=== PATIENT | male | born 1950 | race Caucasian/White ===

== ENCOUNTER 2019-06-03 07:34 | Emergency (ER) | payer MEDICARE, OTHER ==
[~2019-06-03] VITALS: Ht 172.7 cm; Wt 100.0 kg
[~2019-06-03 07:34] MED LIST: ACYC-202 PO; ASPI-611 PO; ATEN-169 PO; ATOR80TA PO; BUDE10.22 INH; CHOL400T57 PO; CYAN500T63 PO; LISI2.5T2 PO; METF500T PO
[2019-06-03] MEDS ORDERED: LIDOcaine 1% w/epiNEPHrine 1:200,000 30ml vial IM ONE (08:50)
[2019-06-03] MEDS ORDERED: AMOX-422 PO (10:43)
[2019-06-03] MEDS ORDERED: TETanus/Pertussis (Acell)/Diphther VAC/PF (Tdap-Adult) 0.5ml syringe IM ONE (10:45)
[2019-06-03 11:12] VITALS: BP 150/90
== END 2019-06-03 11:14 | disposition home or self-care (01) ==
LOC: ER 07:35
DX: S81.842A Puncture wound with foreign body, left lower leg, initial encounter (principal); Z79.2 Long term (current) use of antibiotics; Z79.82 Long term (current) use of aspirin; Z79.84 Long term (current) use of oral hypoglycemic drugs; Z79.899 Other long term (current) drug therapy; W45.8XXA Other foreign body or object entering through skin, initial encounter; Y93.89 Activity, other specified; Y92.89 Other specified places as the place of occurrence of the external cause; Y99.8 Other external cause status
CPT/HCPCS: 10120; 90471; 99284

== ENCOUNTER 2021-10-05 07:16 | Inpatient (IN) | payer OTHER, MEDICARE ==
[~2021-10-05] VITALS: Ht 172.7 cm; Wt 104.5 kg
[~2021-10-05 07:16] MED LIST changes: +ACYC-129 PO; -ACYC-202 PO; -CYAN500T63 PO; +CYAN500T71 PO; +LISI2.5T14 PO; -LISI2.5T2 PO
[2021-10-05] MEDS ORDERED: benzonatate 100mg capsule PO ONE (07:55)
[2021-10-05] MEDS ORDERED: acetaminophen 325mg tablet PO ONE (07:55)
[2021-10-05 08:28] LABS: HEMOGLOBIN 12.8 g/dl (14.0-17.9); LYMPHOCYTES # (AUTO) 0.6 X10'3 (1.1-4.8); MEAN PLATELET VOLUME 8.4 FL (7.4-10.4)
[2021-10-05 08:31] LABS: BASOPHILS % (AUTO) 0.5 % (0-1); EOSINOPHILS % (AUTO) 0.5 % (0-6); HEMATOCRIT 37.8 % (42.0-52.0); LYMPHOCYTES % (AUTO) 8.9 % (21-51); MEAN CORPUSCULAR HEMOGLOBIN 31.6 PG (27.0-31.0); MEAN CORPUSCULAR VOLUME 93.1 FL (78-98); MONOCYTES # (AUTO) 0.6 X10'3 (0-0.9); MONOCYTES % (AUTO) 10.2 % (2-12); NEUTROPHILS # (AUTO) 5.1 X10'3 (1.8-7.7); NEUTROPHILS % (AUTO) 79.9 % (42-75); PLATELET COUNT 408 X10'3 (140-440); RED BLOOD COUNT 4.06 X10'6 (4.70-6.10); RED CELL DISTRIBUTION WIDTH 14.3 % (11.5-14.5); WHITE BLOOD COUNT 6.3 X10'3 (4.5-11.0)
[2021-10-05 08:54] LABS: ALANINE AMINOTRANSFERASE 57 U/L (12-78); ALBUMIN 2.2 G/DL (3.4-5.0); ALBUMIN/GLOBULIN RATIO 0.4 (1.1-1.5); ALKALINE PHOSPHATASE 102 IU/L (46-116); ANION GAP 9 (8-16); ASPARTATE AMINO TRANSFERASE 48 U/L (10-37); BILIRUBIN,TOTAL 0.4 MG/DL (0.1-1.0); BLOOD UREA NITROGEN 20 MG/DL (7-18); BUN/CREATININE RATIO 18.2 (5.4-32.0); CALCIUM 9.1 MG/DL (8.5-10.1); CHLORIDE 103 MMOL/L (99-107); GLUCOSE 361 MG/DL (70-104); POTASSIUM 4.5 MMOL/L (3.5-5.1); SODIUM 140 MMOL/L (135-145); TOTAL CARBON DIOXIDE 28.1 MMOL/L (24-32); TOTAL PROTEIN 7.1 G/DL (6.4-8.2); eGFR 66 ML/MIN
[2021-10-05] MEDS ORDERED: heparin 10,000 units/1 ML INJ IV ONE ×3 (09:10→10:27)
[2021-10-05] MEDS ORDERED: aspirin 325mg tablet PO ONE (09:10)
[2021-10-05 09:24] LABS: BURR CELLS 1+; LARGE PLATELETS FEW; PLATELET ESTIMATE NORMAL
[2021-10-05] MEDS ORDERED: iohexol 350MG/ML 100ml bottle IV ONE (09:54)
[2021-10-05] MEDS ORDERED: dexamethasone 4mg/ml inj IV ONE (10:05)
[2021-10-05] MEDS ORDERED: magnesium 2GM in 50ml NS 50 ML IV PRN (10:10)
[2021-10-05] MEDS ORDERED: bisacodyl 10mg suppository rectal RC PRN (10:10)
[2021-10-05] MEDS ORDERED: PERFLUTREN PROTEIN-A MICROSPHR (Optison) 0.22 MG/ML 3ML VIAL IV ONE (10:10)
[2021-10-05] MEDS ORDERED: magnesium Cl slow-release 64mg tablet PO PRN (10:10)
[2021-10-05] MEDS ORDERED: acetaminophen 325mg tablet PO PRN ×2 (10:10)
[2021-10-05] MEDS ORDERED: HYDROcodone/acetaminophen 5mg/325mg tablet PO PRN (10:10)
[2021-10-05] MEDS ORDERED: magnesium hydroxide 30ml (MOM) UD suspension PO PRN (10:10)
[2021-10-05] MEDS ORDERED: morphine 2 MG/ML inj. syringe IV PRN ×2 (10:10)
[2021-10-05] MEDS ORDERED: MESSAGE TO PHARMACY PO ONE (10:10)
[2021-10-05] MEDS ORDERED: dextrose ORAL solution 15 GM/59 ML bottle PO PRN ×2 (10:10)
[2021-10-05] MEDS ORDERED: heparin 25,000 UNIT/250ml bag 250 ML IV SCH (10:10)
[2021-10-05] MEDS ORDERED: diphenhydrAMINE 50 mg/ml inj IV PRN (10:10)
[2021-10-05] MEDS ORDERED: magnesium 4gm in 100ml NS 100 ML IV PRN (10:10)
[2021-10-05] MEDS ORDERED: metoclopramide 5 mg/ml inj IV PRN (10:10)
[2021-10-05] MEDS ORDERED: ondansetron/PF 4mg/2ml inj IV PRN (10:10)
[2021-10-05] MEDS ORDERED: acetaminophen 650mg rectal suppository RC PRN (10:10)
[2021-10-05] MEDS ORDERED: potassium Cl 40MEQ/1/2NS 520ml 520 ML IV PRN ×2 (10:10)
[2021-10-05] MEDS ORDERED: diphenhydrAMINE 25mg capsule PO PRN (10:10)
[2021-10-05] MEDS ORDERED: HYDROcodone/acetaminophen 10/325mg tab PO PRN (10:10)
[2021-10-05] MEDS ORDERED: ALBUTEROL INHALER 1 PUFF/90 MCG INHALER IH PRN (10:10)
[2021-10-05] MEDS ORDERED: heparin 10,000 units/1 ML INJ IV PRN (10:10)
[2021-10-05] MEDS ORDERED: mag hydrox/Alum hydrox/simeth 30ml oral suspension PO PRN (10:10)
[2021-10-05] MEDS ORDERED: potassium Cl 20 mEq SR tablet PO PRN ×2 (10:10)
[2021-10-05] MEDS ORDERED: glucagon, human recombinant 1mg kit SUBCUT PRN (10:10)
[2021-10-05] MEDS ORDERED: dextrose 50%-water 50ml dispensing syringe IV PRN ×2 (10:10)
[2021-10-05 10:13] LABS: PARTIAL THROMBOPLASTIN TIME 24 SECONDS (22-32)
[2021-10-05 10:40] LABS: BASOPHILS % (AUTO) 0.2 % (0-1); EOSINOPHILS % (AUTO) 0.6 % (0-6); HEMATOCRIT 37.4 % (42.0-52.0); HEMOGLOBIN 12.4 g/dl (14.0-17.9); LYMPHOCYTES # (AUTO) 0.6 X10'3 (1.1-4.8); LYMPHOCYTES % (AUTO) 10.1 % (21-51); MEAN CORPUSCULAR HGB CONC 33.2 g/dL (33.0-36.5); MEAN CORPUSCULAR VOLUME 93.2 FL (78-98); MEAN PLATELET VOLUME 8.4 FL (7.4-10.4); MONOCYTES # (AUTO) 0.7 X10'3 (0-0.9); NEUTROPHILS # (AUTO) 4.5 X10'3 (1.8-7.7); NEUTROPHILS % (AUTO) 77.1 % (42-75); PLATELET COUNT 402 X10'3 (140-440); RED BLOOD COUNT 4.01 X10'6 (4.70-6.10); RED CELL DISTRIBUTION WIDTH 14.3 % (11.5-14.5); WHITE BLOOD COUNT 5.8 X10'3 (4.5-11.0)
[2021-10-05 10:55] LABS: CLARITY,URINE CLEAR (Clear); COLOR,URINE YELLOW (Yellow); GLUCOSE, URINE >=1000 mg/dl (Neg); KETONES,URINE NEGATIVE (Neg); LEUKOCYTE ESTERASE ,URINE NEGATIVE (Neg); NITRITES, URINE NEGATIVE (Neg); OCCULT BLOOD,URINE TRACE-LYSED (Neg); PROTEIN,URINE 30 mg/dl (Neg); UA COLLECTION TYPE VOIDED; UROBILINOGEN,URINE 0.2 E.U/dL (0.2-1.0)
[2021-10-05 11:02] LABS: BACTERIA,URINE NONE SEEN /HPF (Neg); MUCUS STRANDS NONE SEEN /LPF (Neg); RBC,URINE 0-2 /HPF (0-2); SQUAMOUS EPITHELIAL CELL,UR NONE SEEN /LPF (FEW); WBC,URINE NONE SEEN /HPF (0-4)
[2021-10-05] MEDS: MESSAGE TO NURSING PO SCH (11:30)
[2021-10-05] MEDS: heparin 25,000 UNIT/250ml bag 250 ML IV SCH ×2 (12:17→20:38)
[2021-10-05] MEDS ORDERED: nitroGLYCERIN 0.4mg SUBLingual tab SL PRN (18:20)
[2021-10-05 19:30] VITALS: BP 170/85
[2021-10-05] MEDS ORDERED: dexamethasone inj 6 MG in dextrose 5%-water 100 ML IV SCH (20:00)
[2021-10-05] MEDS: aspirin 81mg, enteric-coated 1 TAB TABLET.DR PO SCH (20:00)
[2021-10-05] MEDS: docusate sod 100mg capsule PO SCH (20:00)
[2021-10-05] MEDS: K and/or MAG REPLACEMENT MC SCH (20:00)
[2021-10-05] MEDS: heparin 10,000 units/1 ML INJ IV PRN (20:35)
[2021-10-05] MEDS ORDERED: temazepam 15mg capsule PO PRN (21:00)
[2021-10-05] MEDS: normal saline 1000ml 1,000 ML IV SCH (21:16)
[2021-10-05] MEDS: insulin Lispro (HumaLOG) vial - multi-dose SQ SCH (21:37)
[2021-10-05] MEDS: insulin glargine (Lantus) pen - multi-dose SQ SCH (21:39)
[2021-10-05] MEDS: metoprolol tartrate 12.5mg (1/2 tablet) PO SCH (21:42)
[2021-10-05 22:00] VITALS: BP 137/86
[2021-10-05] MEDS: dexamethasone inj 6 MG in dextrose 5%-water 100 ML IV SCH (23:12)
[2021-10-05] MEDS ORDERED: benzonatate 100mg capsule PO PRN (23:40)
--- NOTE | 2021-10-05 23:40 | NUR ---
blood sugar rechecked 365,informed dr. paiz just follow protocol.
[2021-10-06] MEDS: normal saline 1000ml 1,000 ML IV SCH ×3 (01:07→17:24)
[2021-10-06 02:00] VITALS: BP 131/83
[2021-10-06 02:49] LABS: BASOPHILS % (AUTO) 0.1 % (0-1); EOSINOPHILS % (AUTO) 0.7 % (0-6); HEMATOCRIT 37.3 % (42.0-52.0); HEMOGLOBIN 12.4 g/dl (14.0-17.9); LYMPHOCYTES # (AUTO) 0.4 X10'3 (1.1-4.8); LYMPHOCYTES % (AUTO) 6.8 % (21-51); MEAN CORPUSCULAR HEMOGLOBIN 30.9 PG (27.0-31.0); MEAN CORPUSCULAR HGB CONC 33.1 g/dL (33.0-36.5); MEAN CORPUSCULAR VOLUME 93.3 FL (78-98); MEAN PLATELET VOLUME 8.5 FL (7.4-10.4); MONOCYTES # (AUTO) 0.4 X10'3 (0-0.9); MONOCYTES % (AUTO) 6.8 % (2-12); NEUTROPHILS # (AUTO) 5.1 X10'3 (1.8-7.7); NEUTROPHILS % (AUTO) 85.6 % (42-75); PLATELET COUNT 438 X10'3 (140-440); RED CELL DISTRIBUTION WIDTH 14.1 % (11.5-14.5); WHITE BLOOD COUNT 5.9 X10'3 (4.5-11.0)
[2021-10-06 03:02] LABS: D-DIMER 1.61 MG/L FEU (0-0.50)
[2021-10-06 03:06] LABS: ALANINE AMINOTRANSFERASE 59 U/L (12-78); ALBUMIN 2.1 G/DL (3.4-5.0); ALBUMIN/GLOBULIN RATIO 0.4 (1.1-1.5); ALKALINE PHOSPHATASE 94 IU/L (46-116); ANION GAP 9 (8-16); ASPARTATE AMINO TRANSFERASE 41 U/L (10-37); BILIRUBIN,TOTAL 0.3 MG/DL (0.1-1.0); BLOOD UREA NITROGEN 22 MG/DL (7-18); BUN/CREATININE RATIO 21.8 (5.4-32.0); C-REACTIVE PROTEIN 11.55 MG/DL (0.0-0.5); CALCIUM 8.7 MG/DL (8.5-10.1); CHLORIDE 103 MMOL/L (99-107); CHOL/HDL RATIO 5.9 (0.00-4.99); CHOLESTEROL 135 MG/DL (0-200); CREATININE 1.01 MG/DL (0.60-1.10); GLUCOSE 263 MG/DL (70-104); HDL CHOLESTEROL 23 MG/DL (35-60); LACTATE DEHYDROGENASE 332 U/L (85-227); LDL CHOLESTEROL 83 MG/DL (50-100); MAGNESIUM 2.1 MG/DL (1.5-2.4); POTASSIUM 4.7 MMOL/L (3.5-5.1); SODIUM 138 MMOL/L (135-145); TOTAL CARBON DIOXIDE 25.8 MMOL/L (24-32); TOTAL PROTEIN 7.1 G/DL (6.4-8.2); TRIGLYCERIDES 151 MG/DL (20-135); eGFR 73 ML/MIN
[2021-10-06] MEDS: heparin 10,000 units/1 ML INJ IV PRN ×2 (03:19→17:17)
[2021-10-06] MEDS: heparin 25,000 UNIT/250ml bag 250 ML IV SCH ×3 (03:24→17:17)
[2021-10-06 06:00] VITALS: BP 164/80
[2021-10-06] MEDS ORDERED: dexamethasone inj 6 MG in dextrose 5%-water 100 ML IV SCH (08:00)
[2021-10-06] MEDS: docusate sod 100mg capsule PO SCH ×2 (08:00→20:00)
[2021-10-06] MEDS: K and/or MAG REPLACEMENT MC SCH ×2 (08:00→20:00)
[2021-10-06] MEDS: insulin Lispro (HumaLOG) vial - multi-dose SQ SCH ×4 (08:18→21:35)
[2021-10-06] MEDS: pantoprazole 40mg Tablet.DR PO SCH (08:20)
[2021-10-06] MEDS: aspirin 81mg, enteric-coated 1 TAB TABLET.DR PO SCH (08:20)
[2021-10-06] MEDS: metoprolol tartrate 12.5mg (1/2 tablet) PO SCH ×2 (08:21→21:25)
[2021-10-06] MEDS: dexamethasone inj 6 MG in dextrose 5%-water 100 ML IV SCH ×2 (08:23→21:19)
--- NOTE | 2021-10-06 08:55 | NUR ---
Diabetes consult: Pt admitted w/ acute respiratory failure w/ hypoxemia secondary to Covid per EMR. Noted A1C 8.7 noted to take metformin at home. Will defer DM ed until pt more appropriate this admit. Addendum: 10/06/21 at [address] Amended: Links added.
--- NOTE | 2021-10-06 09:17 | NUR ---
Page Sent PAGER ID: [phone] MESSAGE: FARHAT [id number]-RE: [id number] PT REPORTING CHEST TIGHTNESS WITH 8/10 PN, PT STATES "FEELS LIKE A HEART ATTACK"...12 LEAD EKG DONE
[2021-10-06] MEDS ORDERED: morphine 2 MG/ML inj. syringe IV ONE (09:25)
--- NOTE | 2021-10-06 09:32 | NUR ---
Page Sent PAGER ID: [phone] MESSAGE: FARHAT [id number]-RE: [id number]...WHAT STRENGTH FOR THE NITRO PATCH?
[2021-10-06] MEDS: MESSAGE TO NURSING PO SCH (10:00)
[2021-10-06 11:00] VITALS: BP 162/76
--- NOTE | 2021-10-06 13:04 | NUR ---
Page Sent PAGER ID: [phone] MESSAGE: FARHAT 5430-RE: [id number]...POSITIVE BLOOD CULTURE...GRAM POSITIVE COCCXI IN CLUSTERS SEEN IN ANAEROBIC BOTTLE 10/05/21 @ 1028, IV DRAW
[2021-10-06 14:00] VITALS: BP 137/71
[2021-10-06] MEDS ORDERED: nitroGLYCERIN 0.4mg/hour patch TD PRN (14:00)
[2021-10-06] MEDS ORDERED: EMPA25TA PO (16:28)
[2021-10-06] MEDS ORDERED: GABA-534 PO (16:28)
[2021-10-06] MEDS ORDERED: DICL100G30 TOP (16:28)
[2021-10-06] MEDS ORDERED: LOSA100T57 PO (16:28)
[2021-10-06] MEDS ORDERED: ZOLP5TAB2 PO (16:28)
--- NOTE | 2021-10-06 18:20 | NUR ---
Problems reprioritized. Patient report given, questions answered & plan of care reviewed with ALPESH Altamirano.
[2021-10-06 18:30] VITALS: BP 143/71
[2021-10-06] MEDS: insulin glargine (Lantus) pen - multi-dose SQ SCH (21:33)
[2021-10-06 22:00] VITALS: BP 112/60
[2021-10-07] MEDS: heparin 25,000 UNIT/250ml bag 250 ML IV SCH ×2 (01:25→16:08)
[2021-10-07 02:00] VITALS: BP 132/57
[2021-10-07] MEDS ORDERED: AMLO2.5T4 PO (02:58)
[2021-10-07] MEDS: normal saline 1000ml 1,000 ML IV SCH ×3 (04:23→23:53)
[2021-10-07 06:00] VITALS: BP 142/68
--- NOTE | 2021-10-07 06:58 | NUR ---
Patient in room ORTHO 4016. I have received report from ALPESH Altamirano and had the opportunity to ask questions and assume patient care.
[2021-10-07] MEDS: K and/or MAG REPLACEMENT MC SCH ×2 (08:00→20:00)
[2021-10-07] MEDS: docusate sod 100mg capsule PO SCH ×4 (08:00→20:00)
[2021-10-07 08:13] LABS: MEAN CORPUSCULAR HEMOGLOBIN 31.1 PG (27.0-31.0)
[2021-10-07 08:15] LABS: BASOPHILS % (AUTO) 0.3 % (0-1); EOSINOPHILS % (AUTO) 0 % (0-6); HEMATOCRIT 37.7 % (42.0-52.0); HEMOGLOBIN 12.8 g/dl (14.0-17.9); LYMPHOCYTES # (AUTO) 0.8 X10'3 (1.1-4.8); LYMPHOCYTES % (AUTO) 7.4 % (21-51); MEAN CORPUSCULAR HGB CONC 33.8 g/dL (33.0-36.5); MEAN PLATELET VOLUME 8.8 FL (7.4-10.4); MONOCYTES # (AUTO) 0.7 X10'3 (0-0.9); MONOCYTES % (AUTO) 6.9 % (2-12); NEUTROPHILS % (AUTO) 85.4 % (42-75); PLATELET COUNT 590 X10'3 (140-440); RED CELL DISTRIBUTION WIDTH 14.3 % (11.5-14.5); WHITE BLOOD COUNT 10.5 X10'3 (4.5-11.0)
[2021-10-07] MEDS ORDERED: aminophylline 250mg/10ml inj. IV PRN (08:15)
[2021-10-07] MEDS ORDERED: regadenoson 0.4mg/5ml syringe IV ONE (08:15)
[2021-10-07] MEDS ORDERED: nitroGLYCERIN 0.4mg SUBLingual tab SL PRN (08:15)
[2021-10-07] MEDS ORDERED: metoprolol tartrate 1mg/ml inj IV PRN (08:15)
[2021-10-07] MEDS: insulin Lispro (HumaLOG) vial - multi-dose SQ SCH ×3 (08:27→19:20)
[2021-10-07 08:29] LABS: D-DIMER 0.94 MG/L FEU (0-0.50)
[2021-10-07] MEDS: dexamethasone inj 6 MG in dextrose 5%-water 100 ML IV SCH ×2 (08:30→20:56)
[2021-10-07] MEDS: aspirin 81mg, enteric-coated 1 TAB TABLET.DR PO SCH (08:30)
[2021-10-07] MEDS: pantoprazole 40mg Tablet.DR PO SCH ×2 (08:30→20:57)
[2021-10-07] MEDS: metoprolol tartrate 12.5mg (1/2 tablet) PO SCH ×2 (08:31→20:57)
[2021-10-07 08:49] LABS: ANION GAP 10 (8-16); BLOOD UREA NITROGEN 18 MG/DL (7-18); BUN/CREATININE RATIO 19.1 (5.4-32.0); CHLORIDE 107 MMOL/L (99-107); CREATININE 0.94 MG/DL (0.60-1.10); GLUCOSE 190 MG/DL (70-104); POTASSIUM 4.4 MMOL/L (3.5-5.1); SODIUM 141 MMOL/L (135-145); TOTAL CARBON DIOXIDE 24.4 MMOL/L (24-32)
[2021-10-07 08:50] LABS: ALANINE AMINOTRANSFERASE 95 U/L (12-78); ALBUMIN/GLOBULIN RATIO 0.4 (1.1-1.5); ALKALINE PHOSPHATASE 97 IU/L (46-116); ASPARTATE AMINO TRANSFERASE 77 U/L (10-37); BILIRUBIN,TOTAL 0.3 MG/DL (0.1-1.0); C-REACTIVE PROTEIN 3.88 MG/DL (0.0-0.5); CALCIUM 8.6 MG/DL (8.5-10.1); LACTATE DEHYDROGENASE 540 U/L (85-227); MAGNESIUM 1.9 MG/DL (1.5-2.4); TOTAL PROTEIN 6.6 G/DL (6.4-8.2); eGFR 79 ML/MIN
--- NOTE | 2021-10-07 09:00 | NUR ---
PT REPORTING CP 6/10 CENTER CHEST RADIATES BILAT TOWARD SHOULDERS, ALSO REPORTING SOB...PRN NITRO SL GIVEN TO PT. POST 3 MIN AFTER MED GIVEN, PT REPORTS NO PAIN. EKG DONE, MD NOTIFIED. WILL CONTINUE TO MONITOR
--- NOTE | 2021-10-07 09:17 | NUR ---
Page Sent PAGER ID: [phone] MESSAGE: FARHAT 5430-RE: [id number]... PT REPORTS CHEST PN/TIGHTNESS, NITRO SL GIVEN...CHECKED AFTER 5 MIN, PN AND TIGHTNESS GONE...
[2021-10-07 09:45] LABS: GIANT PLATELET FEW; PLATELET ESTIMATE INCREASED
[2021-10-07 10:00] VITALS: BP 108/57
[2021-10-07] MEDS: MESSAGE TO NURSING PO SCH (10:00)
[2021-10-07] MEDS ORDERED: zolpidem 5mg tablet PO PRN (12:00)
[2021-10-07] MEDS ORDERED: albuterol 2.5 MG/3 ML nebule NEB SCH (15:00)
[2021-10-07] MEDS: gabapentin 400mg capsule PO SCH ×2 (16:16→23:53)
--- NOTE | 2021-10-07 18:10 | NUR ---
Patient in room ORTHO 4016. I have received report from ALPESH Cruz and had the opportunity to ask questions and assume patient care.
--- NOTE | 2021-10-07 18:40 | NUR ---
Problems reprioritized. Patient report given, questions answered & plan of care reviewed with ALPESH RICH.
[2021-10-07 19:00] VITALS: BP 119/62
[2021-10-07] MEDS ORDERED: non-formulary drug (Budesonide/Formoterol Fumarate (Symbicort 80-4.5 Mcg Inhaler) 2 PUFFS) INH SCH (20:00)
[2021-10-07] MEDS: insulin glargine (Lantus) pen - multi-dose SQ SCH (20:56)
[2021-10-07] MEDS ORDERED: budesonide 0.5mg/2ml UD nebule IH SCH (21:00)
[2021-10-07] MEDS ORDERED: atorvastatin 20mg tablet PO SCH (21:00)
[2021-10-07 22:00] VITALS: BP 139/68
[2021-10-07] MEDS ORDERED: regadenoson 0.4mg/5ml syringe IV PRN (22:05)
[2021-10-08] VITALS (16 sets, daily range): BP systolic 129–193; BP diastolic 60–80
[2021-10-08 02:20] LABS: EOSINOPHILS # (AUTO) 0.1 X10'3 (0-0.9); LYMPHOCYTES # (AUTO) 0.8 X10'3 (1.1-4.8); MEAN PLATELET VOLUME 8.6 FL (7.4-10.4); RED CELL DISTRIBUTION WIDTH 14.5 % (11.5-14.5)
[2021-10-08 02:22] LABS: BASOPHILS % (AUTO) 0.1 % (0-1); HEMATOCRIT 37.2 % (42.0-52.0); HEMOGLOBIN 12.5 g/dl (14.0-17.9); LYMPHOCYTES % (AUTO) 7.8 % (21-51); MEAN CORPUSCULAR HEMOGLOBIN 31.1 PG (27.0-31.0); MEAN CORPUSCULAR HGB CONC 33.7 g/dL (33.0-36.5); MEAN CORPUSCULAR VOLUME 92.2 FL (78-98); MONOCYTES # (AUTO) 0.9 X10'3 (0-0.9); MONOCYTES % (AUTO) 9.2 % (2-12); NEUTROPHILS # (AUTO) 8.1 X10'3 (1.8-7.7); NEUTROPHILS % (AUTO) 81.9 % (42-75); PLATELET COUNT 566 X10'3 (140-440); RED BLOOD COUNT 4.03 X10'6 (4.70-6.10); WHITE BLOOD COUNT 9.8 X10'3 (4.5-11.0)
[2021-10-08 02:32] LABS: D-DIMER 0.81 MG/L FEU (0-0.50)
[2021-10-08 02:34] LABS: ALANINE AMINOTRANSFERASE 89 U/L (12-78); ALBUMIN/GLOBULIN RATIO 0.5 (1.1-1.5); ALKALINE PHOSPHATASE 96 IU/L (46-116); ANION GAP 13 (8-16); ASPARTATE AMINO TRANSFERASE 52 U/L (10-37); BILIRUBIN,TOTAL 0.3 MG/DL (0.1-1.0); BLOOD UREA NITROGEN 19 MG/DL (7-18); BUN/CREATININE RATIO 21.8 (5.4-32.0); C-REACTIVE PROTEIN 2.15 MG/DL (0.0-0.5); CALCIUM 8.4 MG/DL (8.5-10.1); CHLORIDE 107 MMOL/L (99-107); CREATININE 0.87 MG/DL (0.60-1.10); GLUCOSE 126 MG/DL (70-104); LACTATE DEHYDROGENASE 245 U/L (85-227); MAGNESIUM 1.8 MG/DL (1.5-2.4); POTASSIUM 4.3 MMOL/L (3.5-5.1); SODIUM 142 MMOL/L (135-145); TOTAL CARBON DIOXIDE 21.9 MMOL/L (24-32); TOTAL PROTEIN 6.2 G/DL (6.4-8.2); eGFR 86 ML/MIN
--- NOTE | 2021-10-08 06:22 | NUR ---
Problems reprioritized. Patient report given, questions answered & plan of care reviewed with ALPESH Giang.
[2021-10-08] MEDS: dexamethasone inj 6 MG in dextrose 5%-water 100 ML IV SCH (07:19)
[2021-10-08] MEDS ORDERED: atenolol 50mg tablet PO SCH (08:00)
[2021-10-08] MEDS ORDERED: losartan 50mg tablet PO SCH (08:00)
[2021-10-08] MEDS: docusate sod 100mg capsule PO SCH (08:00)
[2021-10-08] MEDS ORDERED: cholecalciferol (vitamin D3) 400 unit (10mcg) tablet PO SCH (08:00)
[2021-10-08] MEDS ORDERED: cyanocobalamin 500mcg tablet PO SCH (08:00)
[2021-10-08] MEDS: gabapentin 400mg capsule PO SCH (08:00)
[2021-10-08] MEDS ORDERED: acyclovir 200 MG capsule PO SCH (08:00)
[2021-10-08] MEDS ORDERED: non-formulary drug (Aspirin (Aspir 81) 1 TAB) PO SCH (08:00)
[2021-10-08] MEDS: K and/or MAG REPLACEMENT MC SCH (08:00)
[2021-10-08] MEDS ORDERED: Empagliflozin (Jardiance) 25 MG TAB PO SCH (08:00)
[2021-10-08] MEDS: normal saline 1000ml 1,000 ML IV SCH (08:10)
--- NOTE | 2021-10-08 10:38 | NUR ---
die inspector dr nehemias king Addendum: 10/08/21 at 1039 by Pratima Myles RN Amended: Links added.
[2021-10-08] MEDS: metoprolol tartrate 12.5mg (1/2 tablet) PO SCH (11:37)
[2021-10-08] MEDS: pantoprazole 40mg Tablet.DR PO SCH (11:37)
[2021-10-08] MEDS: aspirin 81mg, enteric-coated 1 TAB TABLET.DR PO SCH (11:37)
--- NOTE | 2021-10-08 12:00 | NUR ---
PAGER ID: [phone] MESSAGE: [id number] Roista Munoz: JAMES.....Kiara Scan report is up. quin [phone]
[2021-10-08] MEDS ORDERED: DEC4T PO (12:06)
[2021-10-08] MEDS ORDERED: NITR0.4T51 SL (12:06)
--- NOTE | 2021-10-08 12:33 | NUR ---
patient discharged Addendum: 10/08/21 at 1233 by Padmaja Segura RN Amended: Links added.
--- NOTE | 2021-10-08 12:49 | NUR ---
PAGER ID: [phone] MESSAGE: [phone] Rosita Munoz: this is a [facility]. he'll need a hand prescription. thanks, quin [phone]
--- NOTE | 2021-10-08 14:13 | NUR ---
Patient stable and appropriate for discharge home with son. IV removed, vehicle monitor technician removed. All belongings taken from room. [facility]. All discharge instructions and education has been given and reviewed with patient, all questions answered.
== END 2021-10-08 13:50 | DRG 177 ==
LOC: ER 07:17 → ED HOLD 10:07 → UNDOADMIN 10:07 → ED HOLD 10:18 → EDBEDREQ 18:23 → ED HOLD 19:41 → ORTHO 4S 19:41
PROVIDERS: ADMIT Family Medicine; ATTEND Family Medicine
PROC: B32T1ZZ Computerized Tomography (CT Scan) of Left Pulmonary Artery using Low Osmolar Contrast (ICD-10-PCS; 2021-10-05)
PROC: B3201ZZ Computerized Tomography (CT Scan) of Thoracic Aorta using Low Osmolar Contrast (ICD-10-PCS; 2021-10-05)
PROC: B32S1ZZ Computerized Tomography (CT Scan) of Right Pulmonary Artery using Low Osmolar Contrast (ICD-10-PCS; 2021-10-05)
PROC: 4A02XM4 Measurement of Cardiac Total Activity, External Approach (ICD-10-PCS; principal; 2021-10-08)
PROC: 3E073KZ Introduction of Other Diagnostic Substance into Coronary Artery, Percutaneous Approach (ICD-10-PCS; 2021-10-08)
DX: U07.1 COVID-19 (principal); J96.01 Acute respiratory failure with hypoxia; J12.82 Pneumonia due to coronavirus disease 2019; I21.4 Non-ST elevation (NSTEMI) myocardial infarction; J44.0 Chronic obstructive pulmonary disease with (acute) lower respiratory infection; I38 Endocarditis, valve unspecified; I10 Essential (primary) hypertension; I71.4 Abdominal aortic aneurysm, without rupture; E86.0 Dehydration; E11.42 Type 2 diabetes mellitus with diabetic polyneuropathy; E11.65 Type 2 diabetes mellitus with hyperglycemia; M54.12 Radiculopathy, cervical region; N52.9 Male erectile dysfunction, unspecified; E78.5 Hyperlipidemia, unspecified; I25.10 Atherosclerotic heart disease of native coronary artery without angina pectoris; Z79.82 Long term (current) use of aspirin; Z85.038 Personal history of other malignant neoplasm of large intestine; Z85.46 Personal history of malignant neoplasm of prostate; Z85.828 Personal history of other malignant neoplasm of skin; Z87.891 Personal history of nicotine dependence; Z95.1 Presence of aortocoronary bypass graft; Z79.899 Other long term (current) drug therapy
CPT/HCPCS: 36415; 71045; 71275; 78452; 80053; 80061; 81001; 82948; 83036; 83605; 83615; 83735; 83880; 84145; 84484; 85008; 85025; 85379; 85610; 85730; 86140; 87040; 87077; 87081; 87186; 87635; 93005; 93017; 93306; 94760; 97116; 97161; 97530; 99285; A9500; C9803; G0378; J0280; J1100; J1644; J1815; J2270; J2785; J7030; J7060; Q9967

== ENCOUNTER 2022-01-27 13:16 | Day surgery (SDC) | payer OTHER ==
[2022-01-22 10:16] LABS: ALBUMIN 3.6 G/DL (3.4-5.0); ANION GAP 4 (8-16); BLOOD UREA NITROGEN 20 MG/DL (7-18); BUN/CREATININE RATIO 19.8 (5.4-32.0); CALCIUM 9.1 MG/DL (8.5-10.1); CHLORIDE 100 MMOL/L (99-107); CREATININE 1.01 MG/DL (0.60-1.10); GLUCOSE 207 MG/DL (70-104); POTASSIUM 4.3 MMOL/L (3.5-5.1); SODIUM 137 MMOL/L (135-145); TOTAL CARBON DIOXIDE 32.9 MMOL/L (24-32); eGFR 73 ML/MIN
[2022-01-22 10:19] LABS: APTT 26 SECONDS (22-32)
[2022-01-22 10:25] LABS: BASOPHILS # (AUTO) 0.1 X10'3 (0-0.2); BASOPHILS % (AUTO) 0.7 % (0-1); EOSINOPHILS # (AUTO) 0.1 X10'3 (0-0.9); EOSINOPHILS % (AUTO) 1.3 % (0-6); HEMATOCRIT 44.6 % (42.0-52.0); HEMOGLOBIN 14.7 g/dl (14.0-17.9); LYMPHOCYTES # (AUTO) 1.5 X10'3 (1.1-4.8); LYMPHOCYTES % (AUTO) 21.9 % (21-51); MEAN CORPUSCULAR HEMOGLOBIN 31.5 PG (27.0-31.0); MEAN CORPUSCULAR VOLUME 95.6 FL (78-98); MEAN PLATELET VOLUME 8.6 FL (7.4-10.4); MONOCYTES # (AUTO) 0.8 X10'3 (0-0.9); MONOCYTES % (AUTO) 11.1 % (2-12); NEUTROPHILS # (AUTO) 4.5 X10'3 (1.8-7.7); PLATELET COUNT 277 X10'3 (140-440); RED BLOOD COUNT 4.66 X10'6 (4.70-6.10); RED CELL DISTRIBUTION WIDTH 15.3 % (11.5-14.5)
[~2022-01-27] VITALS: Ht 172.7 cm; Wt 102.4 kg
[~2022-01-27 13:16] MED LIST changes: +AMLO2.5T4 PO; +EMPA25TA PO; +GABA-534 PO; +LIDOcaine 1% (10mg/ml)w/preservative injection 20ml MDV ONE; -LISI2.5T14 PO; +LOSA100T57 PO; +ZOLP5TAB2 PO; +fentaNYL/PF 50MCG/1 ML 2ML syringe ONE; +heparin 1,000unit/ml 10ml vial 10 ML ONE; +iohexol 350MG/ML 100ml bottle IV ONE; +midazolam 1 mg/ML 2ml injection ONE; +nitroGLYCERIN-Tridil 50MG/D5W 250 ML IV ONE; +verapamil 2.5 mg/ml inj IV ONE
[2022-01-27] MEDS ORDERED: LORazepam 0.5 MG tablet PO PRN (13:30)
[2022-01-27] MEDS ORDERED: diphenhydrAMINE 25mg capsule PO PRN (13:30)
[2022-01-27] MEDS ORDERED: normal saline 1,000 ML IV SCH (13:30)
[2022-01-27] MEDS ORDERED: VALA100031 PO (13:59)
[2022-01-27] MEDS ORDERED: ATEN-27 PO (13:59)
[2022-01-27] MEDS ORDERED: FMLOS (13:59)
[2022-01-27] MEDS ORDERED: AMLO5TAB PO (13:59)
[2022-01-27] MEDS ORDERED: CYAN100T47 PO (13:59)
[2022-01-27] MEDS ORDERED: METF-438 PO (13:59)
[2022-01-27] MEDS ORDERED: GLIM4TAB7 PO (13:59)
[2022-01-27] MEDS ORDERED: iohexol 350 MG/ML 50ML vial IV ONE (14:41)
[2022-01-27] MEDS ORDERED: iohexol 350MG/ML 100ml bottle IV ONE (14:47)
[2022-01-27] MEDS ORDERED: heparin 1,000unit/ml 10ml vial 10 ML ONE (14:52)
[2022-01-27] MEDS ORDERED: clopidogrel 300mg tablet ONE (14:52)
[2022-01-27] MEDS ORDERED: aspirin 325mg tablet ONE (14:52)
[2022-01-27 15:42] VITALS: BP 162/73
[2022-01-27 15:57] VITALS: BP 167/83
[2022-01-27 16:12] VITALS: BP 152/67
[2022-01-27 16:26] VITALS: BP 158/73
[2022-01-27 17:00] VITALS: BP 157/63
[2022-01-27 17:11] VITALS: BP 143/54
== END 2022-01-27 17:55 | disposition home or self-care (01) ==
LOC: SSTAY O 13:16
PROVIDERS: ATTEND Internal Medicine Interventional Cardiology
DX: R94.39 Abnormal result of other cardiovascular function study (principal); R07.89 Other chest pain; I25.810 Atherosclerosis of coronary artery bypass graft(s) without angina pectoris; J44.9 Chronic obstructive pulmonary disease, unspecified; I25.2 Old myocardial infarction; I10 Essential (primary) hypertension; E78.5 Hyperlipidemia, unspecified; E11.40 Type 2 diabetes mellitus with diabetic neuropathy, unspecified; Z79.84 Long term (current) use of oral hypoglycemic drugs; Z79.899 Other long term (current) drug therapy; Z87.891 Personal history of nicotine dependence; Z86.16 Personal history of COVID-19; Z85.038 Personal history of other malignant neoplasm of large intestine
CPT/HCPCS: 36415; 80048; 85025; 85610; 85730; 93005; 93459; 99152; 99153; C1725; C1751; C1760; C1769; C1874; C1894; C9600; J1644; J2250; J3010; J3490; Q0163; Q9967; A4620; A5120